=== PATIENT | female | born 1955 | race Caucasian/White ===

== ENCOUNTER 2022-08-15 01:26 | Emergency (ER) | payer MEDICARE ==
[~2022-08-15] VITALS: Ht 165.1 cm; Wt 65.8 kg
--- NOTE | 2022-08-15 01:29 | NUR ---
Patient placed in room 5A. Patient walked from [facility] to [facility] bed standby assist. Activity tolerated well.
--- NOTE | 2022-08-15 01:29 | NUR ---
Karthik vance in [facility] - 08/15/22 at 0143 by BESSY Patient placed in room 5A. Patient ambulated from [facility] standby assist. Activity tolerated well.
--- NOTE | 2022-08-15 01:30 | NUR ---
Dr. Foster evaluated patient at bedside. MSE in progress.
[2022-08-15] MEDS ORDERED: IBUPROFEN 400 MG TABLET ONE (01:38)
[2022-08-15] MEDS ORDERED: ACETAMINOPHEN ES 500 MG TABLET ONE (01:38)
--- NOTE | 2022-08-15 01:40 | NUR ---
Xray at bedside.
[2022-08-15] MEDS ORDERED: IBUPROFEN 400 MG TABLET PO ONE (01:45)
[2022-08-15] MEDS ORDERED: ACETAMINOPHEN ES 500 MG TABLET PO ONE (01:45)
[2022-08-15] MEDS ORDERED: IBUP-1953 PO (02:48)
--- NOTE | 2022-08-15 03:29 | NUR ---
Patient discharged to home in stable condition. Written and verbal after care instructions given. Patient verbalizes understanding of instructions. Stressed follow up or return to ER for worsening s/s.
[2022-08-15 03:30] VITALS: BP 115/65
== END 2022-08-15 03:32 | disposition home or self-care (01) ==
LOC: ER 01:28
DX: M25.572 Pain in left ankle and joints of left foot (principal); M25.571 Pain in right ankle and joints of right foot; E78.5 Hyperlipidemia, unspecified; I25.2 Old myocardial infarction; F17.210 Nicotine dependence, cigarettes, uncomplicated; W10.9XXA Fall (on) (from) unspecified stairs and steps, initial encounter; Y93.89 Activity, other specified; Y92.89 Other specified places as the place of occurrence of the external cause; Y99.8 Other external cause status
CPT/HCPCS: 73610; A4663; A9150